=== PATIENT | male | born 1950 | race Caucasian/White ===

== ENCOUNTER 2016-08-06 21:14 | Inpatient (IN) ==
[2016-08-06] MEDS ORDERED: Heparin 1,000 UNITS/500 mL NS 500 ML ONE (21:33)
[2016-08-06] MEDS ORDERED: 0.9 % Sodium Chloride 1,000 ML ONE ×2 (21:33→23:06)
[2016-08-06] MEDS ORDERED: Nitroglycerin 1,000 MCG/10 ML VIAL IV ONE (21:33)
[2016-08-06] MEDS ORDERED: *HR* Heparin 10,000 UNIT/10 ML VIAL ONE (21:33)
--- NOTE | 2016-08-06 22:36 | Cardiology History & Physical ---
Date of Encounter: 08/06/16 Time of Encounter: 23:09 Assessment and Plan (1) Acute MA Status: Acute Acute inferior posterior MA Qualifiers: Myocardial infarction ST status: ST elevation myocardial infarction Involved coronary artery: left circumflex coronary artery Qualified Code(s): I21.21 - ST elevation (STEMI) myocardial infarction involving left circumflex coronary artery (2) Atrial fibrillation Status: Acute Rate control. EP to seein am. Qualifiers: Atrial fibrillation type: unspecified Qualified Code(s): I48.91 - Unspecified atrial fibrillation History of Present Illness Chief complaint: Chest pain HPI: Mr. Min is a 66 year old male who presented an outside hospital with complaints of chest discomfort. He has a past medical history of atrial fibrillation for which she underwent successful ablation approximately 2 years ago and has only been on aspirin therapy since. He presented with complaints of chest pain, pressure-like in nature and nonradiating. He had associated nausea with emesis. He denies shortness of breath or diaphoresis.. ECG obtained showed ST elevation in the inferior and lateral precordial leads. He was started on heparin and given Plavix 600 mg at the outside ER. On arrival here he is chest discomfort free. Past Med Surg Social Fam HX - Past Medical History Medical history: atrial fibrillation - Past Surgical History Surgical History: other (Cardiac ablation) Medications and Allergies Allergies No Known Allergies Allergy (Verified 08/06/16 21:31) All Systems Review: A 10-system review of systems was performed and is negative for pertinent findings except as documented above in the HPI. Physical Examination General: Conversant, No Apparent Distress HEENT: Atraumatic, Normocephaly, Mucus Membranes Moist Neck: No JVD, Normal carotid pulses Cardiac: Reg Rate and Rhythm, Normal S1 and S2, No Murmur Lungs: Normal Breath Sounds, No Wheeze, Rales, Rhonchi Neuro: Alert and responsive, No focal deficits noted Abdomen: Soft, Non-Tender Skin: No rashes noted on visualized skin Musculoskeletal: No Chest Wall Tenderness Extremities: No Clubbing, No Cyanosis, No Edema, Normal Pulses Results - EKG Interpretation EKG results cardiology: personally reviewed, other (Atrial fibrillation, ST elevation, Acute inferior posterior MA)
--- NOTE | 2016-08-06 22:46 | Pre-Sedation Evaluation ---
Pre-sedation evaluation - Pre-sedation checklist Date of procedure: 08/06/16 Procedure: Cardiac cath with possible PCI H&P (including ROS) documented in medical record: Yes Previous reaction to sedatives/anesthetics: No Dietary Status: unknown Airway Assessment: Patient can open mouth completely, TMJ function normal Dentition: No loose teeth or bridges Possible difficult airway: No ASA Classification *see protocol: CLASS I-Normal, healthy patient, CLASS II- Mild systemic disease Plan of Care: Pt appropriate candidate for procedure/moderate/conscious sedation
[2016-08-06] MEDS ORDERED: *HR* Midazolam HCl 5 MG/5 ML VIAL IVP ONE (23:06)
[2016-08-06] MEDS ORDERED: *HR* FentaNYL (PF) 100 MCG/2 ML VIAL ONE (23:06)
[2016-08-06] MEDS ORDERED: Tirofiban 12.5 MG/250ML 12.5 MG/250 ML BAG ONE (23:33)
--- NOTE | 2016-08-07 00:06 | Invasive Diagnostic Lab Proc ---
Name: Giuseppe Min Date of Study: 08/06/2016 Date: 1950 Ht: 74.0in Medical Record#: [id number] Age: 66 Wt: 182.98lb Gender: Male BSA: 2.09 Order #: [id number] BMI: 23.48 Physicians Procedure Physician: Colby Parra MD Referring MD: Referring MD: Staff Name Position Time In Suha Reid RT (R) Scrub 11:10 PM Harmony Unger RN Territory Sales Manager 11:10 PM Kayley Kyle RN Territory Sales Manager 11:10 PM Amira Celis RN Monitor 11:10 PM Indications Indication STEMI Procedures Performed Procedure L HRT ARTERY/VENTRICLE ANGIO Pre-Procedure Checklist Informed consent is complete signed and on chart. H\\T\\P is on chart. ID band is on and ID verified with patient. Patient NPO for procedure The procedure was described for the patient and questions were answered. Blood Pressure: 137/93 ECG is on chart. Rhythm: Atrial Fibrillation Plan of Care Patient will tolerate the procedure without complications. Adequate level of comfort will be maintained. Hemodynamics will remain stable Patient will recover from procedure without complications. Respiratory function will be maintained. Cardiac rhythm will remain stable. Patient temperature will be maintained. Patient and/or family have verbalized understanding of the procedure. Patient Education Intravenous Access Time IV Size Location DC'd Fluid/Drip Rate Units RN 11:12 PM 18g 1 1/4" Patent On Arrival Lt Antecubital 0.9NaCl 25 ml/hr Kayley Kyle RN 11:12 PM 18g 1 1/4" Patent On Arrival Rt Antecubital Allergies No Known Allergies Vital Signs Time BP (mmHg) HR (bpm) O2 Sat. RR (bpm) LOC 11:11 PM 137 / 93 54 97 % 16 11:16 PM 141 / 96 86 97 % 20 11:21 PM 137 / 84 79 95 % 11:26 PM 147 / 101 68 96 % 16 11:31 PM 145 / 91 96 96 % 12 11:36 PM 147 / 97 94 95 % 20 11:41 PM 143 / 94 79 95 % 11 Procedural Medications Time Medication Dose Units Method Given By 11:11 PM Oxygen 2 L/min nasal cannula Kayley Kyle RN 11:14 PM Versed 2 mg Intravenous Kayley Kyle RN 11:14 PM Fentanyl 50 mcg Intravenous Kayley Kyle RN 11:18 PM Lidocaine 2% 20 ml Subcutaneous Colby Parra MD 11:38 PM Aggrastat Bolus: 42 ml Intravenous Kayley Kyle RN 11:38 PM Aggrastat 12.5mg/250ml 80.9 ml Intravenous Kayley Kyle RN ASA Classification: CLASS II- Mild systemic disease (i.e. well-controlled diabetes, hypertension, asthma, cigarette smoking) Emergent Procedure: ASA score is assumed Fernanda Score Preprocedure Postprocedure Activity 2- Moves 4 extremities sustained head lift Activity 2- Moves 4 extremities sustained head lift Circulation 2- SBP +/= 20 points of pre-anesthetic level Circulation 2- SBP +/= 20 points of pre-anesthetic level Consciousness 2- Awake and alert oriented x 3 Consciousness 2- Awake and alert oriented x 3 O2 Saturation 2- Able to maintain O2 satruation of 92% on room air O2 Saturation 2- Able to maintain O2 satruation of 92% on room air Respiratory 2- Able to deep breathe and cough well Respiratory 2- Able to deep breathe and cough well Total Score 10 Total Score 10 Contrast Agent: Isovue Diagnostic Contrast: 81 ml Total Contrast: 81 ml Fluoro Dose: 264 mGy Activated Clotting Time Time Seconds to Clot 11:40 PM 200 Procedure Log Time Note Enter By 11:04 PM Pt arrived to [facility] [employer] 2 at 23:04 [facility] 11:10 PM Vitals capture started with the following parameters, Patient=Adult, Interval=5 min, Initial Dgvlnneo=298 mmHg, Deflation Rate=5 mmHg, Cuff placed on Right Arm 11:10 PM CathStat 11:10 PM Suha Reid RT (R) Position: Scrub Time in: 23:10 [facility] 11:10 PM Harmony Unger RN Position: Territory Sales Manager Time in: 23:10 [facility] 11:10 PM Kayley Kyle RN Position: Territory Sales Manager Time in: 23:10 [facility] 11:10 PM Amira Celis RN Position: Monitor Time in: 23:10 [facility] 11:10 PM Patient charges- Angio tray pack, Navilyst 3mm J, Pulse Oximetry and ACIST tubing and transducer [facility] 11:11 PM HR=54 bpm, BGET=778/93 mmhg, SpO2=97.0 %, Resp=16 B/min, Comment=Afib 11: PM Case Delayed No [facility] PM Hair removed from procedure site in holding area using clippers. Bilateral groin prepped with Chloraprep by Suha Reid (R), safety strap applied then patient was draped. Skin intact. [facility] : PM Physician arrived 23:11 [facility] : PM Meet and greet completed [facility] : PM Sign in performed according to hospital policy. [facility] : Procedure start 23:11 [facility] PM Time: :11 Oxygen on at 2 L/min per nasal cannula by Kayley [facility] PM Time: 23:11 Patient comfortable and pain free: Yes [facility] PM Time: 23:11LOC: 5 = Fully awake and oriented or at pre-proc level [facility] PM Time: :14 Versed 2 mg Intravenous Given by Kayley [facility] RN [facility] PM Time: 23:14 Fentanyl 50 mcg Intravenous Given by Kayley Kyle RN [facility] 11:14 PM Recorded ECG: HR=79 Condition=Condition 1 11:16 PM HR=86 bpm, BEFG=045/96 mmhg, SpO2=97.0 %, Resp=20 B/min, Comment=Afib 11:16 PM Time out performed according to hospital policy [facility] 17 Pressure channel 1 zeroed. :18 PM Time: 23:18 20 ml Lidocaine 2% to right groin Subcutaneous Given by Colby Parra MD [facility] 11:19 PM Micro-Introducer Kit utilized for sheath placement [facility] 11:20 PM Micro-Introducer Kit utilized for sheath placement, 2nd one [facility] 11: PM Inflation device was opened. [facility] 11: PM HR=79 bpm, WFPJ=915/84 mmhg, SpO2=95.0 %, Comment=Afib 11: PM access obtained using micropuncture kit [facility] : PM Sheath exchanged for a 6 Fr 11 cm Cordis Joanne sheath [id number] [facility] 11: PM 5Fr FR 4 catheter inserted over the wire [facility] 11: PM Recorded Pressure: Ao, HR=84, Condition=Condition 1 (Aorta) Ao 139/82/108 11: PM RCA angiography performed in multiple views. [facility] 11: PM Coronary Dominance: [facility]: PM Catheter removed [facility] 11: PM 6Fr XB3.5 [place] Bright-Tip guide catheter was used to cannulate the PCI vessel successfully. reused? No [facility] 11: PM .014 PT Graphix 180cm guide wire across target lesion- successful. reused? No [facility] 11: PM HR=68 bpm, XREZ=926/101 mmhg, SpO2=96.0 %, Resp=16 B/min, Comment=Afib PM Time: : Patient comfortable and pain free: Yes [facility] : PM Time: 23:LOC: 5 = Fully awake and oriented or at pre-proc level [facility] 11:28 PM LCA angiography performed in multiple views. [facility] 11:30 PM Recorded Pressure: Ao, HR=77, Condition=Condition 1 (Aorta) Ao 121/72/94 11:31 PM HR=96 bpm, WKOU=586/91 mmhg, SpO2=96.0 %, Resp=12 B/min, Comment=Afib 11: PM Catheter removed [facility] 11:32 5Fr Pigtail catheter inserted over the wire [facility] 11:32 Catheter selectively placed in left ventricle [facility] 11:33 PM Recorded Pressure: LV, HR=86, Condition=Condition 1 (Left Ventricle) LV 146/19/26 11:33 PM Bolus angiogram of left Ventricle complete: 10 ml/sec for a total of 20 mls [facility] 11:33 PM Time: : Patient comfortable and pain free: Yes [facility] 11:34 PM Recorded Pressure: LV, Ao, HR=76, Condition=Condition 1 (Left Ventricle) LV 147/9/13, (Aorta) Ao 141/80/107 11:35 PM Catheter removed [facility] 11:35 PM Bolus angiogram of right Femoral complete: 2 ml/sec for a total of 4 mls [facility] 11:36 PM HR=94 bpm, EGEJ=591/97 mmhg, SpO2=95.0 %, Resp=20 B/min, Comment=Afib 11:36 PM Procedure completed at 23:36 [facility] 11:37 PM Sign out completed: Radiation Dose 263.54 mGy Fluoro Time: 1.3 Isovue 370 - 200ml contrast 80.9 ml given by Colby Parra MD. Complications: NoneCardiac Rehab Consult needed: YesConfirmed administered medications: No [facility] 11:37 PM Isovue 370 - 200ml,1 Bottle(s) used. [facility] 11:37 PM Sheath left in place to be pulled on floor/holding area [facility] 11:37 PM Post ECG NSR [facility] 11:37 PM Post Blood Pressure 147/97 [facility] 11:37 PM 23:37 Post Pulses Bilateral DP \\T\\ PT 1+ [facility] 11:38 PM Time: 23:38 Aggrastat Bolus: 42 ml Intravenous Given by Kayley Kyle RN [facility] 11:38 PM Time: 23:38 Aggrastat 12.5mg/250ml 80.9 ml Intravenous Given by Kayley Kyle RN [facility] 11:41 PM HR=79 bpm, GKLT=346/94 mmhg, SpO2=95.0 %, Resp=11 B/min, Comment=Afib 11:44 PM Information taught Cardiac Cath [facility] 11:44 PM At 23:40 the ACT was 200 seconds. [facility] 11:46 PM Education needs Procedure [facility] 11:48 PM Learning barriers :None [facility] 11:48 PM Education Methods Verbal [facility] 11:48 PM Education evaluation Able to repeat information [facility] 11:48 PM Site status No bleeding/hematoma - Rt Groin as reported by Suha Reid RT (R) at 23:48 [facility] 11:48 PM Opsite applied [facility] 11:49 PM Report given to Yousif DONOHUE Pt taken to ICU Room #2. 23:48 [facility] 11:49 PM Plavix, Effient or Brilinta given Yes at [place] prior ro arrival to [place] [facility] 11:49 PM Delay to floor No [facility] 11:49 PM Patient out of room: 23:49 [facility] 11:49 PM Family placed in consult room. [facility] 11:49 PM Complications: None [facility] 11:49 PM Lesion found in Distal Circumflex. Pre Stenosis: 100 Pre BOONE Flow: 0: No Flow/No perfusion [facility] 11:50 PM Lesion found in 2nd Marginal. Pre Stenosis: 100 Pre BOONE Flow: 0: No Flow/No perfusion [facility] 11:50 PM Circumflex, Obtuse Marginal, Left Posterior Descending, and Left Posterolateral Coronary Arteries with 100 % stenosis. [facility] Complications Complication None Hemodynamics Pressures Site Systolic/A Wave Diastolic/V Wave Mean AO 139 82 108 AO 121 72 94 LV 146 19 26 LV 147 9 13 AO 141 80 107 Post Procedure Information Blood Pressure: 147/97 mmHg Rhythm: NSR Post procedural instructions were given Site Checks Time Location Status Staff Sheath In? Note 11:48 PM Rt Groin No bleeding/hematoma Suha Reid RT (R) Pulses Time Site Pre-Procedure Post-Procedure Note 08/06/2016 11:13:00 PM Bilateral DP \\T\\ PT 1+ 11:37:00 PM Bilateral DP \\T\\ PT 1+ Updated by Amira Celis RN on 08/06/2016 11:57:39 PM Amira Celis RN electronically signed on 08/06/2016 11:57:57 PM with status of Final
--- NOTE | 2016-08-07 00:14 | Procedure Note ---
Date of procedure: 08/06/16 Pre-op diagnosis: Acute MN Post-op diagnosis: same Procedure: Cardiac catheterization: Left Main-normal, LAD-normal, CX-100% distal with OM 2- 100% distal, RCA-normal, LVEF-50% with inferior posterior hypokinesis. Impression: 1. Acute inferior posterior MN secondary to embolization related to atrial fibrillation not adequately anticoagulated. Plan: 1. Aspirin, Plavix, Aggrastat 2. Lisinopril, Coreg 3. Will need anticoagulation with heparin and then oral anticoagulant such as Coumadin or NOAC 4. EP to see Anesthesia: IV sedation Surgeon: Colby Parra Estimated blood loss (cc): 10 Condition: stable Disposition: ICU
--- NOTE | 2016-08-07 00:16 | Invasive Diagnostic Lab ---
Name: Giuseppe Min Date of Study: 08/06/2016 Date: 1950 Ht: 477.5 cm /188.0 in Medical Record#: [id number] Age: 66 Wt: 83. kg / 182.98 lb Account/Order#: [id number] Gender: Male BSA: 4.11 Order #: [id number] Fluoro Dose: 264 mGy BMI: 3.64 Procedure Physician: Colby Parra MD Referring MD: Referring MD: Procedures Performed: LEFT HEART CATH Indications: STEMI Impressions: There is severe one vessel coronary artery disease. The left ventricle is normal and has normal contractility EF 50% Recommendations: Optimal medical therapy of patient's disease. Aggressive risk factor modification. History/Risk Factors: Afib AFib Ablation Complications: None Contrast: Isovue 81ml Hemodynamics: Pressures Site Systolic/ A Wave Diastolic/ V Wave End Diastolic/ Mean HR AO 139 82 108 84 AO 121 72 94 77 LV 146 19 26 86 LV 147 9 13 76 AO 141 80 107 78 LV Ventriculography Ejection Method: LV Gram Ejection Fraction: 50% Wall Motion: BRYANT Anterobasal Normal Anterolateral Normal Apical: Normal Inferoapical Mild Hypokinesis Inferobasal Mild Hypokinesis Coronary Dominance: right Lesion Findings/Interventions * Left Main Coronary Artery The LMCA is angiographically free of disease. * Left Anterior Descending The LAD is angiographically free of disease. The 1st Diagonal is angiographically free of disease. * Circumflex There is a 100% stenosis in the Distal Circumflex. The lesion has a BOONE flow of 0. There is a 100% stenosis in the 2nd Marginal. The lesion has a BOONE flow of 0. * Right Coronary Artery The RCA is angiographically free of disease. The Right PDA is angiographically free of disease. Updated by Harmony Unger RN on 08/06/2016 11:54:53 PM Colby Parra MD electronically signed on 08/07/2016 12:09:00 AM with status of Final
[2016-08-07] MEDS ORDERED: *HR* Atropine Sulfate 1 MG/10 ML SYRINGE ONE (02:23)
[2016-08-07 03:58] LABS: Basophils % 0.3 %; Eosinophils % 0.3 %; Hematocrit 46.2 % (37.5-50.1); Hemoglobin 15.6 g/dL (12.9-16.9); Immature Granulocytes % 0.5 % (0-4); Lymphocytes # 1.5 K/mcL (0.6-4.6); Lymphocytes % 9.6 %; Mean Corpuscular HGB Conc 33.8 g/dL (31.6-35.5); Mean Corpuscular Hemoglobin 30.1 pg (28.0-33.3); Mean Corpuscular Volume 89.2 fL (83.0-100.0); Mean Platelet Volume 11.8 fL (9.4-12.4); Monocytes # 0.8 K/mcL (0.0-1.3); Platelet Count 227 K/mcL (140-400); Red Blood Count 5.18 M/mcL (4.19-5.50); Red Cell Distribution Width 14.4 % (11.5-14.5); Segmented Neutrophils % 84.3 %
[2016-08-07 05:30] LABS: BUN/Creatinine Ratio 14 (6-26); Blood Urea Nitrogen 12 mg/dL (8-26); Calcium 9.3 mg/dL (8.6-10.8); Carbon Dioxide 20 mEq/L (19-29); Chloride 105 mEq/L (98-109); Glucose 122 mg/dL (70-99); Osmolality,Calculated 281 (280-300); Potassium 4.3 mEq/L (3.5-4.5); Sodium 135 mEq/L (136-145); eGFR For African Americans > 60 (> 60); eGFR For Non-African Americans > 60 (> 60)
[2016-08-07] MEDS ORDERED: Ondansetron 4 MG/2 ML VIAL IVP PRN (08:40)
[2016-08-07] MEDS: Aspirin 81 MG TAB.CHEW PO SCH (09:38)
--- NOTE | 2016-08-07 10:01 | Cardiology Progress Note ---
Date of Encounter: 08/07/16 Time of Encounter: 09:00 Assessment and Plan (1) Acute FL Current Visit: Yes Status: Acute Acute inferior posterior FL. He was found to have a 100% occlusion in the distal LCX artery and 100% occlusion in the 2nd OM. FL thought to be secondary to inadequate anticoagulation for afib. Paroxysmal atrial fibrillation seen on telemetry this morning. Now consistently afib. He was previously a CHDAS VASc=1 and now 2. Triple therapy was recommended. Importance of DAPT for one year reviewed with patient and and they voiced understanding. Continue asa, plavix, statin, and bb. Continue lisinopril. Add imdur. Currently on aggrastat. Currently is pain free. Possible step-down from ICU tomorrow. Qualifiers: Myocardial infarction ST status: ST elevation myocardial infarction Involved coronary artery: left circumflex coronary artery Qualified Code(s): I21.21 - ST elevation (STEMI) myocardial infarction involving left circumflex coronary artery (2) Atrial fibrillation Current Visit: Yes Status: Acute Currently rate controlled afibrillation with periods of sinus bradycardia HR in the 40's. H/o aflutter ablation. Continue bb. CHADS VASc =2 for age and CAD. Anticoagulation is recommended. I discussed coumadin vs NOAC indication, benefit , and risk. Triple therapy discussed. He voiced understanding of increased risk of bleeding. He prefers NOAC. Rx sent to pharmacy and [facility] cost is 361.00$. Patient agrees this is not affordable and agrees to coumadin. TTE: EF 55%. Mild aortic regurgitation. Mild aortic sclerosis. No pulmonary hypertesion. Currently on aggrastat s/p FL. Start heparin gtt for afib. Start coumadin today. Daily INR. Qualifiers: Atrial fibrillation type: unspecified Qualified Code(s): I48.91 - Unspecified atrial fibrillation (3) Atrial flutter Current Visit: Yes Status: Resolved Currently rate controlled afibrillation with periods of sinus bradycardia HR in the 40's. H/o aflutter ablation. Qualifiers: Atrial flutter type: unspecified Qualified Code(s): I48.92 - Unspecified atrial flutter Discussion w patient/family: The assessment and plan as outlined above was discussed with the patient and/or family members who expressed understanding and agreement. All questions were answered. Thank you for involving us in the care of your patient. Please call with any questions. Subjective Principal diagnosis: STEMI Interval history: Mr. Min as a history of atrial fibrillation s/p ablation who presented with chest pain and was found to have acute inferior posterior FL. He was found to have a 100% occlusion in the distal LCX artery and 100% occlusion in the 2nd OM. FL thought to be secondary to inadequate anticoagulation for aflutter. Denies recurrent chest pain. Denies palpitations or SOB. Resting comfortably in bed. Objective Vital Signs, Last 4 Hours Temp Pulse Resp BP Pulse Ox 08/07/16 09:15 85 18 144/95 94 08/07/16 08:42 94 08/07/16 08:15 90 16 140/93 94 08/07/16 08:00 90 08/07/16 07:00 97.9 F 72 18 132/83 95 08/07/16 06:00 73 12 154/97 95 General: Conversant, No Apparent Distress HEENT: Atraumatic, Normocephaly, Mucus Membranes Moist Neck: No JVD, Normal carotid pulses Cardiac: Other Lungs: Normal Breath Sounds, No Wheeze, Rales, Rhonchi Neuro: Alert and responsive, No focal deficits noted Abdomen: Soft, Non-Tender Skin: No rashes noted on visualized skin Musculoskeletal: No Chest Wall Tenderness Extremities: No Clubbing, No Cyanosis, No Edema, Normal Pulses, Other (Right groin dressing D/I.) Results 08/07/16 03:51 08/07/16 05:07 Lab Results 08/07/16 08/07/16 03:51 05:07 WBC 15.4 H Hgb 15.6 Hct 46.2 Plt Count 227 Sodium 135 L Potassium 4.3 Chloride 105 Carbon Dioxide 20 BUN 12 Creatinine 0.85 Glucose 122 H Calcium 9.3 - Imaging and Cardiology Echo: pending Cardiac cath: report reviewed - EKG Interpretation EKG results cardiology: personally reviewed (ATrial fibrillation with inferior ST elevation.) - VTE Reasons for not Prescribing Prophylaxis: Treatment not Indicated - Low risk for VTE Consult Discharge Plan - Plan Referrals: Courtney Bajwa MD [Primary Care Provider] -
[2016-08-07] MEDS ORDERED: *HR* Heparin 5,000 UNIT/ML VIAL IVP ONE (11:36)
[2016-08-07] MEDS: Heparin 25,000 UNIT/500 ML D5W 25,000 UNIT/500 ML MLS IVC SCH (14:18)
[2016-08-07 14:23] LABS: Hematocrit 51.4 % (37.5-50.1); Mean Corpuscular HGB Conc 33.9 g/dL (31.6-35.5); Mean Corpuscular Hemoglobin 29.6 pg (28.0-33.3); Mean Corpuscular Volume 87.6 fL (83.0-100.0); Platelet Count 229 K/mcL (140-400); Red Blood Count 5.87 M/mcL (4.19-5.50)
[2016-08-07 14:26] LABS: Hemoglobin 17.4 g/dL (12.9-16.9)
[2016-08-07 14:30] LABS: INR 1.1; Prothrombin Time 11.9 Seconds (9.4-12.1)
[2016-08-07 14:33] LABS: Activated Partial Thrombo Time 34.2 Seconds (26.0-36.0)
[2016-08-07] MEDS: Isosorbide MONOnitrate (24 HR) 30 MG TAB.ER.24H PO SCH (14:35)
[2016-08-07] MEDS ORDERED: *HR* Heparin 5,000 UNIT/ML VIAL IVP PRN ×2 (15:00)
[2016-08-07] MEDS: Tirofiban 12.5 MG/250ML 12.5 MG/250 ML BAG IVC SCH ×2 (17:19)
[2016-08-07] MEDS ORDERED: *HR* Warfarin 5 MG TABLET PO SCH (18:00)
[2016-08-07] MEDS: Nicotine 21 MG PATCH.TD24 TD SCH (18:42)
[2016-08-08 04:54] LABS: INR 1.2; Prothrombin Time 12.8 Seconds (9.4-12.1)
[2016-08-08 05:06] LABS: Activated Partial Thrombo Time 56.6 Seconds (26.0-36.0)
[2016-08-08] MEDS: Nicotine 21 MG PATCH.TD24 TD SCH (07:45)
[2016-08-08] MEDS: Isosorbide MONOnitrate (24 HR) 30 MG TAB.ER.24H PO SCH (07:46)
[2016-08-08] MEDS: Aspirin 81 MG TAB.CHEW PO SCH (07:46)
[2016-08-08 08:49] LABS: Basophils % 0.3 %; Eosinophils # 0.1 K/mcL (0.0-0.6); Eosinophils % 0.4 %; Hematocrit 47.1 % (37.5-50.1); Hemoglobin 16.1 g/dL (12.9-16.9); Immature Granulocytes % 0.5 % (0-4); Lymphocytes # 1.8 K/mcL (0.6-4.6); Lymphocytes % 12.3 %; Mean Corpuscular HGB Conc 34.2 g/dL (31.6-35.5); Mean Corpuscular Hemoglobin 30.3 pg (28.0-33.3); Mean Corpuscular Volume 88.7 fL (83.0-100.0); Mean Platelet Volume 10.9 fL (9.4-12.4); Neutrophils # 11.5 K/mcL (1.6-8.9); Platelet Count 201 K/mcL (140-400); Red Blood Count 5.31 M/mcL (4.19-5.50); Red Cell Distribution Width 14.5 % (11.5-14.5); Segmented Neutrophils % 79.5 %
[2016-08-08 09:02] LABS: BUN/Creatinine Ratio 10 (6-26); Blood Urea Nitrogen 9 mg/dL (8-26); Calcium 9.1 mg/dL (8.6-10.8); Carbon Dioxide 26 mEq/L (19-29); Chloride 103 mEq/L (98-109); Glucose 146 mg/dL (70-99); Osmolality,Calculated 285 (280-300); Potassium 3.9 mEq/L (3.5-4.5); Sodium 137 mEq/L (136-145); eGFR For African Americans > 60 (> 60); eGFR For Non-African Americans > 60 (> 60)
--- NOTE | 2016-08-08 10:29 | Cardiology Progress Note ---
Date of Encounter: 08/08/16 Time of Encounter: 10:27 Assessment and Plan (1) Acute WY Current Visit: Yes Status: Acute Acute inferior posterior WY. He was found to have a 100% occlusion in the distal LCX artery and 100% occlusion in the 2nd OM. WY thought to be secondary to inadequate anticoagulation for afib per review of interventional cardiology notes. Atrial fibrillation on presentation. Converted to NSR overnight. CHADS VASc=2. Triple therapy was recommended. Importance of DAPT with asa and plavix for one year reviewed with patient and and they voiced understanding. Continue asa, plavix, statin, and bb. Continue lisinopril. Add imdur. Currently is pain free. Step-down from ICU today. Qualifiers: Myocardial infarction ST status: ST elevation myocardial infarction Involved coronary artery: left circumflex coronary artery Qualified Code(s): I21.21 - ST elevation (STEMI) myocardial infarction involving left circumflex coronary artery (2) Atrial fibrillation Current Visit: Yes Status: Acute Atrial fibrillation on presentation. Converted to NSR overnight. H/o aflutter ablation. Continue bb. CHADS VASc =2 for age and CAD. Anticoagulation is recommended. I discussed coumadin vs NOAC indication, benefit , and risk. Triple therapy discussed. He voiced understanding of increased risk of bleeding. He prefers NOAC. Rx sent to pharmacy and [employer] cost is 361.00$. Patient agrees this is not affordable and agrees to coumadin. Coumadin started 08/08/16. He will need bridged d/t WY thought to be caused by inadequate anticoagulation for afib. I discussed lovenox injection at discharged until therapuetic and he agrees. Convert to lovenox 1 mg/kg SQ BID tonight. Lovenox teaching. Coumadin clinic referral will be started. [facility] will monitor INR until set-up. TTE: EF 55%. Mild aortic regurgitation. Mild aortic sclerosis. No pulmonary hypertension. Daily INR. Goal 2.0-3.0. Qualifiers: Atrial fibrillation type: unspecified Qualified Code(s): I48.91 - Unspecified atrial fibrillation (3) Atrial flutter Current Visit: Yes Status: Resolved Currently rate controlled afibrillation with periods of sinus bradycardia HR in the 40's. H/o aflutter ablation. Qualifiers: Atrial flutter type: unspecified Qualified Code(s): I48.92 - Unspecified atrial flutter Discussion w patient/family: The assessment and plan as outlined above was discussed with the patient and/or family members who expressed understanding and agreement. All questions were answered. Thank you for involving us in the care of your patient. Please call with any questions. Subjective Principal diagnosis: STEMI Interval history: Mr. Min as a history of atrial fibrillation s/p ablation who presented with chest pain and was found to have acute inferior posterior WY. He was found to have a 100% occlusion in the distal LCX artery and 100% occlusion in the 2nd OM. WY thought to be secondary to inadequate anticoagulation for atrial fibrillation. He was found to be in atrial fibrillation rate controlled on presentation. He converted to NSR overnight. He c/o nausea and vomiting once overnight and now feels fine. Denies recurrent chest pain. Denies palpitations or SOB. Resting comfortably in bed. Objective Vital Signs, Last 4 Hours Temp Pulse Resp BP Pulse Ox 08/08/16 10:02 67 14 116/86 100 08/08/16 09:08 70 14 128/87 99 08/08/16 08:00 67 14 123/60 97 08/08/16 07:39 73 08/08/16 07:17 61 13 94 08/08/16 07:05 97.9 F General: Conversant, No Apparent Distress HEENT: Atraumatic, Normocephaly, Mucus Membranes Moist Neck: No JVD, Normal carotid pulses Cardiac: Reg Rate and Rhythm, Normal S1 and S2, No Murmur Lungs: Normal Breath Sounds, No Wheeze, Rales, Rhonchi Neuro: Alert and responsive, No focal deficits noted Abdomen: Soft, Non-Tender Skin: No rashes noted on visualized skin Musculoskeletal: No Chest Wall Tenderness, Other (right radial access site without hematoma. ) Extremities: No Clubbing, No Cyanosis, No Edema, Normal Pulses Results 08/08/16 08:32 08/08/16 08:32 Lab Results 08/07/16 08/07/16 08/07/16 14:10 14:10 20:02 WBC 22.3 H Hgb 17.4 H D Hct 51.4 H Plt Count 229 INR 1.1 APTT 34.2 74.6 H D Sodium Potassium Chloride Carbon Dioxide BUN Creatinine Glucose Calcium 08/08/16 08/08/16 08/08/16 03:54 08:32 08:32 WBC 14.5 H Hgb 16.1 Hct 47.1 Plt Count 201 INR 1.2 APTT 56.6 H Sodium 137 Potassium 3.9 Chloride 103 Carbon Dioxide 26 BUN 9 Creatinine 0.93 Glucose 146 H Calcium 9.1 - Imaging and Cardiology Echo: report reviewed - EKG Interpretation EKG results cardiology: personally reviewed (EKG today shows NSR.) - VTE Reasons for not Prescribing Prophylaxis: Treatment not Indicated - Low risk for VTE Consult Discharge Plan - Plan Referrals: Courtney Bajwa MD [Primary Care Provider] -
[2016-08-08] MEDS: Heparin 25,000 UNIT/500 ML D5W 25,000 UNIT/500 ML MLS IVC SCH (10:40)
[2016-08-08] MEDS ORDERED: *HR* Heparin 5,000 UNIT/ML VIAL IVP PRN ×2 (16:54)
[2016-08-08] MEDS ORDERED: Ondansetron 4 MG/2 ML VIAL IVP PRN (16:54)
[2016-08-08] MEDS ORDERED: Heparin 25,000 UNIT/500 ML D5W 25,000 UNIT/500 ML MLS IVC SCH (16:54)
[2016-08-08] MEDS ORDERED: *HR* Warfarin 5 MG TABLET PO SCH (18:00)
[2016-08-08] MEDS: *HR* Enoxaparin 80 MG/0.8 ML SYRINGE SQ SCH (18:21)
--- NOTE | 2016-08-08 18:49 | Electrocardiograph Report ---
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
--- NOTE | 2016-08-08 18:55 | Electrocardiograph Report ---
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
--- NOTE | 2016-08-08 19:07 | Electrocardiograph Report ---
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
[2016-08-09] MEDS: *HR* Enoxaparin 80 MG/0.8 ML SYRINGE SQ SCH (06:21)
[2016-08-09 08:05] LABS: INR 1.4; Prothrombin Time 15.2 Seconds (9.4-12.1)
[2016-08-09] MEDS ORDERED: Aspirin 81 MG TAB.CHEW PO SCH (09:00)
[2016-08-09] MEDS ORDERED: Isosorbide MONOnitrate (24 HR) 30 MG TAB.ER.24H PO SCH (09:00)
[2016-08-09] MEDS ORDERED: Nicotine 21 MG PATCH.TD24 TD SCH (09:00)
--- NOTE | 2016-08-09 10:41 | Discharge Summary ---
Date of Encounter: 08/09/16 Time of Encounter: 08:45 - Discharge Diagnosis (1) Acute MD Priority: Primary Status: Acute Qualifiers: Myocardial infarction ST status: ST elevation myocardial infarction Involved coronary artery: left circumflex coronary artery Qualified Code(s): I21.21 - ST elevation (STEMI) myocardial infarction involving left circumflex coronary artery (2) Atrial fibrillation Priority: Primary Status: Acute Qualifiers: Atrial fibrillation type: paroxysmal Qualified Code(s): I48.0 - Paroxysmal atrial fibrillation (3) Atrial flutter Priority: Secondary Status: Resolved Qualifiers: Atrial flutter type: unspecified Qualified Code(s): I48.92 - Unspecified atrial flutter - Discharge Medications Prescriptions: Enoxaparin [Lovenox] 80 mg SQ Q12HR #5 syr Atorvastatin [Lipitor] 80 mg PO HS #30 tablet Carvedilol [Coreg] 3.125 mg PO BIDWM #60 tablet Clopidogrel [Plavix] 75 mg PO DAILY #30 tablet Isosorbide MONOnitrate (24 HR) [Imdur] 30 mg PO DAILY #30 tab.er.24h Lisinopril [Zestril] 2.5 mg PO DAILY #30 tablet Nicotine Patch [Nicoderm] 21 mg TD DAILY #30 patch.td24 Warfarin [Coumadin] 5 mg PO DAILY@1800 #30 tablet Home Medications: Aspirin 81 mg PO DAILY 08/07/16 [History] [place]-3/Dha/Epa/Fish Oil [Fish Oil 1,000 mg Softgel] 1,000 mg PO DAILY 08/07/16 [History] Enoxaparin [Lovenox] 80 mg SQ Q12HR #5 syr 08/08/16 [Rx] Atorvastatin [Lipitor] 80 mg PO HS #30 tablet 08/09/16 [Rx] Carvedilol [Coreg] 3.125 mg PO BIDWM #60 tablet 08/09/16 [Rx] Clopidogrel [Plavix] 75 mg PO DAILY #30 tablet 08/09/16 [Rx] Isosorbide MONOnitrate (24 HR) [Imdur] 30 mg PO DAILY #30 tab.er.24h 08/09/16 [ Rx] Lisinopril [Zestril] 2.5 mg PO DAILY #30 tablet 08/09/16 [Rx] Nicotine Patch [Nicoderm] 21 mg TD DAILY #30 patch.td24 08/09/16 [Rx] Warfarin [Coumadin] 5 mg PO DAILY@1800 #30 tablet 08/09/16 [Rx] Allergies/Adverse Reactions: Allergies No Known Allergies Allergy (Verified 08/06/16 21:31) Procedures/tests Complete & Pending: Procedures Performed prior 72 hours Category Date Time Status CL Cardiac Catheterization [CL] Stat 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 21:32 Completed ECG 12 lead ECG [ECG] Routine Y 08/07/16 07:00 Completed ECG 12 lead ECG [ECG] Routine Y 08/08/16 09:40 Completed ECG 12 lead ECG [ECG] Routine Y 08/08/16 22:57 Completed ECG 12 lead ECG [ECG] Routine Y 08/09/16 06:42 Completed ECG 12 lead ECG [ECG] Stat Y 08/07/16 01:11 Completed EV echocardiogram Routine Y 08/07/16 07:00 Completed Date of admission: 08/07/16 01:29 Primary care physician: Courtney Bajwa, Consults: 08/06/16 22:48 Consult to Cardiac Rehabilitation-Phase1 [CONS] Routine Comment: Reason for Consult: AMI Call Completed: Yes Consult to Nurse Navigator [CONS] Routine Comment: Discharging clinician: Merrill Pickett Anticipated date of discharge: 08/09/16 - Patient Status Disposition: Home, Self-Care Condition: Good Functional capacity at discharge: independent ambulation Overall status at discharge: patient is progressing back to baseline - Ambulatory Orders Ambulatory Orders: Prothrombin Time INR [COAG] Time Frame: 2 Days, Facility: [facility], Location: Lab - Discharge Instructions Follow Up With: Courtney Bajwa MD [Primary Care Provider] - Marcia Barrera DO [Partnered Physician] - (Cardiology office will call with f/ u appt. ) Additional Instructions: RISK FACTORS: STOP SMOKING: If you smoke, STOP. Smoking or tobacco use significantly increases your risk of heart disease because nicotine causes the arteries to narrow or constrict. It also causes fats to stick to the artery. Your chances of having a heart attack are greatly increased if you continue to smoke. For more information, call the education line for smoking cessation 4-341-MKZXJVS EAT A LOW FAT/CHOLESTEROL/SODIUM DIET: This diet may help reduce your chances of having a heart attack. LIFTING: Avoid lifting anything more than 10 pounds for 5-7 days Prior to straining, laughing, sneezing and/or coughing, apply manual pressure directly over insertion site. ACTIVITY: You may walk or climb stairs as tolerated You can resume sexual activity as tolerated In general, you are encouraged to engage in a minimum of 30 minutes or more of moderate intensity physical activity, such as brisk walking, daily or at least 3 -4 times weekly BATHING Do not submerge the site into water (bath tub, hot tub, swimming pool) for 1 week. This can be a source for infection into the blood stream. You may shower after 24 hours SITE CARE: After 24 hours, you may remove the dressing and leave the site open to air. Keep the site clean and dry. Clean gently and pat dry. You can expect bruising and tenderness that gradually resolve within a week or two. Return to work as instructed per your physician Resume driving as instructed per physician Keep all scheduled follow up appointments Resume medications as instructed IMPORTANT: If prescribed a Platelet Aggregation Inhibitor such as, Plavix, Brilinta or Effient: Duration of therapy is minimum one year These medications are often used in combination with Aspirin in prevention of future heart attacks Never discontinue unless consult with your Asparagus Cutter STROKE (CVA) Risk factors for a stroke are: Age, cigarette smoking, diabetes, excessive alcohol consumption, family history, high blood pressure, overweight, physical inactivity, prior stroke, heart attack, diagnosis of carotid artery stenosis or other artery disease. Warning signs: Sudden numbness or weakness of the face, arm or leg; especially on one side of the body, sudden confusion, trouble speaking or understanding, sudden trouble seeing in one or both eyes, sudden trouble walking, dizziness, loss of balance or coordination, sudden severe headache with no cause. Call 911 or go to the Emergency Room. CONGESTIVE HEART FAILURE: If you have been diagnosed with Congestive Heart Failure (CHF) and your symptoms return, make an appointment with your physician Weigh yourself daily. Notify your physician if you have a weight gain of two or more pounds in one day or five or more pounds in one week. If you experience any difficulty breathing, please call 911 BLEEDING: Although the risk of bleeding is minimal, it can happen. If you have any bleeding from the site, apply firm pressure above the puncture site for 10-15 minutes. If the bleeding does not stop, continue manual pressure and call 911 Contact your physician if: You develop a fever greater than 101 degrees Fahrenheit Your site becomes reddened or has any drainage You have an increase in pain or burning at the site or if a large knot forms at the site. If you experience chest pain, shortness of breath, dizziness, or extreme tiredness, stop the activity and rest. Please notify your physicians office if you experience any of these symptoms and they are not relieved by rest please call 911! - Diet and Activity Diet: advance to your usual diet - Hospital Course Hospital course: Mr. Min is a 66 year old male who presented with acute inferior posterior MD. He was found to have a 100% occlusion in the distal LCX artery and 100% occlusion in the 2nd OM. No complications from his procedure. MD thought to be secondary to inadequate anticoagulation for afib per review of interventional cardiology notes. Atrial fibrillation on presentation. Converted to NSR the next day on carvedilol. Noted to have PAF on telemetry. One episode of recurrent afib, HR 100 overnight and now NSR. He is asymptomatic with his afib. CHADS VASc=2. Triple therapy was recommended. Indications, risk, and benefit of coumadin therapy reviewed. Patient voiced understanding. Lovenox bridge was recommended. INR today was 1.4. Recommended to check INR on Sunday to determine if lovenox needs continued. [facility] will monitor INR . Coumadin clinic referral initially sent. Patient lives in [facility] and would like to use lab there. Importance of DAPT with asa and plavix for one year reviewed with patient and and they voiced understanding. Activity restrictions reviewed as stated above. Smoking cessation discussed and he was agreeable to nicotine patch. Out-pt f/u will be coordinated by [facility] in one week. He will continue to consider cardiac rehab. He denies recurrent chest pain and is ready for discharge. Time spent discussing smoking cessation with patient: more than 10 minutes - Time Spent with Patient Total time spent providing and/or coordinating discharge services: 1HR, D/c teaching, d/c summary, medication reconciliation. Greater than 30 minutes Physical Examination Vital Signs Temp Pulse Resp BP Pulse Ox 08/09/16 06:31 98.3 F 91 16 102/82 93 08/09/16 03:25 98.4 F 78 17 107/60 96 08/08/16 23:55 77 15 120/65 93 08/08/16 20:34 96 08/08/16 20:06 98.2 F 79 15 129/77 96 08/08/16 18:00 71 97 08/08/16 16:14 97.5 F L 71 16 146/92 97 08/08/16 14:00 74 16 95 08/08/16 12:39 97.8 F Intake and Output 08/08/16 08/09/16 08/09/16 23:59 07:59 15:59 Intake Total 0 / 0 240 / 240 480 / 480 Output Total 0 / 0 Balance 0 / 0 240 / 240 480 / 480 Intake: Oral 0 / 0 240 / 240 480 / 480 Output: Urine 0 / 0 Other: Meal Breakfast Percent of Meal Consumed 100% # Voids 1 1 Weight 84.5 kg Patient Weight 08/09/16 23:59 Weight 84.5 kg General: Conversant, No Apparent Distress HEENT: Atraumatic, Normocephaly, Mucus Membranes Moist Neck: No JVD, Normal carotid pulses Cardiac: Reg Rate and Rhythm, Normal S1 and S2, No Murmur Lungs: Normal Breath Sounds, No Wheeze, Rales, Rhonchi Neuro: Alert and responsive, No focal deficits noted Abdomen: Soft, Non-Tender Skin: No rashes noted on visualized skin Musculoskeletal: No Chest Wall Tenderness Extremities: No Clubbing, No Cyanosis, No Edema, Normal Pulses, Other (Right groin soft with no hematoma. ) - VTE Reasons for not Prescribing Prophylaxis: Treatment not Indicated - Low risk for VTE
[2016-08-09 11:40] VITALS: BP 85/63
--- NOTE | 2016-08-09 17:53 | Electrocardiograph Report ---
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
--- NOTE | 2016-08-09 18:01 | Electrocardiograph Report ---
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
== END 2016-08-09 12:37 | disposition home or self-care (01) | DRG 281 ==
LOC: ICNU → 2NENU 08-08 16:07
PROVIDERS: ADMIT Internal Medicine Interventional Cardiology; ATTEND Internal Medicine Clinical Cardiac Electrophysiology

== ENCOUNTER 2021-04-25 16:46 | Observation (INO) ==
[2021-05-10] MEDS ORDERED: Melatonin 3 MG TABLET PO PRN (09:38)
[2021-05-10] MEDS ORDERED: Naloxone 0.4 MG/ML INJ IVP PRN (09:38)
[2021-05-10 11:35] LABS: Hematocrit 47.4 % (37.5-50.1); Mean Corpuscular HGB Conc 33.8 g/dL (31.6-35.5); Mean Corpuscular Hemoglobin 30.9 pg (28.0-33.3); Mean Corpuscular Volume 91.7 fL (83.0-100.0); Mean Platelet Volume 10.8 fL (9.4-12.4); Platelet Count 198 K/mcL (140-400); Red Blood Count 5.17 M/mcL (4.19-5.50); Red Cell Distribution Width 14.2 % (11.5-14.5); White Blood Count 11.5 K/mcL (4.3-11.1)
[2021-05-10 11:42] LABS: INR 2.8; Prothrombin Time 30.6 Seconds (9.4-12.1)
[2021-05-10 11:54] LABS: BUN/Creatinine Ratio 11 (6-26); Blood Urea Nitrogen 11 mg/dL (8-23); Calcium 8.9 mg/dL (8.6-10.3); Carbon Dioxide 23 mEq/L (23-29); Chloride 108 mEq/L (98-107); Glucose 93 mg/dL (70-105); Osmolality,Calculated 287 (280-300); Potassium 3.8 mEq/L (3.5-5.1); Sodium 139 mEq/L (136-145); eGFR For African Americans > 60 (> 60); eGFR For Non-African Americans > 60 (> 60)
[2021-05-10] MEDS ORDERED: *HR* Warfarin 2.5 MG TABLET PO SCH (18:00)
[2021-05-11 00:35] LABS: INR 2.8; Prothrombin Time 31.5 Seconds (9.4-12.1)
[2021-05-11 00:45] LABS: BUN/Creatinine Ratio 12 (6-26); Blood Urea Nitrogen 12 mg/dL (8-23); Calcium 8.6 mg/dL (8.6-10.3); Carbon Dioxide 21 mEq/L (23-29); Chloride 108 mEq/L (98-107); Glucose 84 mg/dL (70-105); Osmolality,Calculated 281 (280-300); Potassium 3.7 mEq/L (3.5-5.1); Sodium 136 mEq/L (136-145); eGFR For African Americans > 60 (> 60); eGFR For Non-African Americans > 60 (> 60)
[2021-05-11] MEDS: lisinopriL 5 MG TABLET PO SCH (08:00)
[2021-05-11] MEDS: Isosorbide MONOnitrate (24 HR) 30 MG TAB.ER.24H PO SCH (08:00)
[2021-05-11] MEDS ORDERED: *HR* Warfarin 5 MG TABLET PO SCH (18:00)
[2021-05-12 07:01] LABS: Prothrombin Time 22.5 Seconds (9.4-12.1)
[2021-05-12 07:13] LABS: BUN/Creatinine Ratio 13 (6-26); Blood Urea Nitrogen 12 mg/dL (8-23); Calcium 8.6 mg/dL (8.6-10.3); Carbon Dioxide 24 mEq/L (23-29); Chloride 108 mEq/L (98-107); Glucose 86 mg/dL (70-105); Osmolality,Calculated 285 (280-300); Potassium 3.8 mEq/L (3.5-5.1); Sodium 138 mEq/L (136-145); eGFR For African Americans > 60 (> 60); eGFR For Non-African Americans > 60 (> 60)
[2021-05-12] MEDS: lisinopriL 5 MG TABLET PO SCH (07:55)
[2021-05-12] MEDS: Isosorbide MONOnitrate (24 HR) 30 MG TAB.ER.24H PO SCH (07:55)
[2021-05-12 07:58] VITALS: TEMP 98.2
[2021-05-12] MEDS ORDERED: 0.9 % Sodium Chloride 500 ML IVC ONE (13:04)
[2021-05-12 13:29] VITALS: BP 111/89; PULSE 64; O2SAT 96
[2021-05-12] MEDS: *HR* Midazolam HCl 5 MG/5 ML VIAL IVP PRN ×4 (13:43→13:50)
[2021-05-12] MEDS: *HR* FentaNYL (PF) 100 MCG/2 ML VIAL IVP PRN ×4 (13:43→13:50)
[2021-05-12] MEDS ORDERED: *HR* Warfarin 2.5 MG TABLET PO SCH (18:00)
[2021-05-13] MEDS ORDERED: *HR* Warfarin 5 MG TABLET PO SCH (18:00)
== END 2021-05-12 17:30 | disposition home or self-care (01) ==
LOC: 2ANU
PROVIDERS: ADMIT Internal Medicine Clinical Cardiac Electrophysiology; ATTEND Internal Medicine Clinical Cardiac Electrophysiology